=== PATIENT | male | born 1985 | race Caucasian/White ===

== ENCOUNTER 2024-02-20 21:34 | Emergency (ER) | payer BC, SELFPAY ==
[2024-02-20 21:36] VITALS: BP 172/100
[2024-02-20 22:42] VITALS: BMI 28.7
--- NOTE | 2024-02-20 23:08 | ED.GENMED ---
History of Present Illness
General
Chief Complaint: Musculo-Skeletal Complaint
Time Seen by Provider: 02/20/24 22:23
Travel History
Have you had any contact with someone who has COVID-19?: No
Do you have any symptoms of coronavirus? Fever > 100 degrees, chills, cough, shortness of breath, sore throat, loss of taste or smell, muscle aches, or headache?: No
History of Present Illness
History of Present Illness:
38-year-old female presents to the emergency department for evaluation of left upper arm injury sustained playing hockey. Forced extension of the left elbow. He has noticeable deformity left bicep
Review of Systems
Review of Systems
Allergies reviewed?: Yes
All Other Systems: ROS reviewed and negative except as documented in HPI and ROS
Phy Exam
Physical Exam
Physical Exam:
GEN: Well appearing, NAD, WDWN
HEENT: Oral mucosa moist, no scleral icterus
Cardiac: Regular rate
Lung: No respiratory distress, no tachypnea
MSK: Obvious deformity of the left bicep consistent with distal tendon rupture
Skin: Good color, no pallor or jaundice, no rashes
Neuro: AO x3, moves all extremities freely
Psych: Calm, cooperative
Course
Vital Signs
Initial and Last Documented VS:
Initial Vital Signs
Temp Pulse Resp BP Pulse Ox
98.1 F 78 18 172/100 98
02/20/24 21:36 02/20/24 21:36 02/20/24 21:36 02/20/24 21:36 02/20/24 21:36
Last Documented Vital Signs
Temp Pulse Resp BP Pulse Ox
98.1 F 78 18 172/100 98
02/20/24 21:36 02/20/24 21:36 02/20/24 21:36 02/20/24 21:36 02/20/24 21:36
MDM/Problems Addressed
MDM/Problems Addressed:
No indication for imaging, discussed supportive care. Advised sling usage until orthopedic follow-up, has orthopedic doctor he sees already for shoulder issues and he plans to follow-up with
*Critical Care Note
Total Time (30-74mins, 75-104mins- exclusive of procedures): Not Applicable
ED Attending Note
-
Portions of this chart may have been created with voice recognition software.� Occasional wrong word or��sound alike� substitutions may have occurred due to the inherent limitations of voice recognition software.
Discharge Plan
Departure
Patient Disposition: Home (Routine Discharge)
Date of Disposition: 02/20/24
Time of Disposition: 23:09
Patient with high blood pressure during this ER visit?: No
Discharge Problem:
Rupture of left distal biceps tendon
Instructions: Biceps Tendon Rupture (DC)
Referrals:
Clayton Meeks, DO [Family Provider] -
Interventions
Interventions:
*Risk Screen - Suicide Last Done: 02/20/24 21:36
*General Assessment Last Done: 02/20/24 22:37
*Neglect/Abuse Screening Last Done: 02/20/24 21:36
ED- Fall Risk Assessment Last Done: 02/20/24 22:37
*ED COVID-19 Vaccine History Last Done: 02/20/24 22:36
ED-Musculoskeletal Assessment Last Done: 02/20/24 22:40
Discharge Date and Time
Print Language: [id number]
[2024-02-20 23:16] VITALS: BP 140/91
[2024-02-20 23:18] VITALS: BP 140/91
== END 2024-02-20 23:19 | disposition home or self-care (01) ==
LOC: EMR 21:34
PROVIDERS: EMERGENCY PHYSICIAN Student in an Organized Health Care Education/Training Program; FAMILY PHYSICIAN Family Medicine
DX: S46.212A Strain of muscle, fascia and tendon of other parts of biceps, left arm, initial encounter (principal); X58.XXXA Exposure to other specified factors, initial encounter; Y93.22 Activity, ice hockey
CPT/HCPCS: 99282